=== PATIENT | female | born 2000 | race Caucasian/White ===

== ENCOUNTER 2024-05-23 18:43 | Emergency (ER) | payer OTHER ==
[~2024-05-23] VITALS: Ht 167.6 cm; Wt 63.0 kg
[2024-05-23 20:21] LABS: BASO % 0.3 % (0.0-1.0); EOS # 0.1 10^3/uL (0.0-0.5); EOS % 1.3 % (0.0-3.0); HEMATOCRIT 31.9 % (36.0-47.0); LYMPH # 2.3 10^3/uL (1.5-5.0); LYMPH % 30.6 % (24.0-44.0); MEAN CORPUSCULAR HEMOGLOBIN 23.9 pg (27.0-33.0); MEAN CORPUSCULAR HGB CONC 31.3 g/dl (32.0-36.5); MEAN CORPUSCULAR VOLUME 76.1 fl (80.0-96.0); MONO # 0.6 10^3/uL (0.0-0.8); MONO % 7.6 % (2.0-8.0); NEUTROPHILS # 4.5 10^3/uL (1.5-8.5); NEUTROPHILS % 59.9 % (36.0-66.0); PLATELET COUNT, AUTOMATED 264 10^3/uL (150-450); RED BLOOD COUNT 4.19 10^6/uL (4.00-5.40); WHITE BLOOD COUNT 7.5 10^3/uL (4.0-10.0)
[2024-05-23 20:49] LABS: LIPASE 31 U/L (12-53)
[2024-05-23 20:51] LABS: ALBUMIN 3.8 G/DL (3.2-5.2); ALKALINE PHOSPHATASE 63 U/L (46-116); ALT/SGPT 16 U/L (7.0-40); AST/SGOT 10 U/L (<34); BILIRUBIN,DIRECT < 0.1 MG/DL (<0.4); BILIRUBIN,TOTAL 0.3 MG/DL (0.3-1.2); BLOOD UREA NITROGEN 10 MG/DL (9-23); CALCIUM LEVEL 9.6 MG/DL (8.5-10.1); CARBON DIOXIDE LEVEL 23 MMOL/L (20-31); CHLORIDE LEVEL 108 MMOL/L (98-107); CREATININE FOR GFR 0.48 MG/DL (0.55-1.30); GLOMERULAR FILTRATION RATE > 60.0 (>60); GLUCOSE, FASTING 109 MG/DL (60-100); POTASSIUM SERUM 3.6 MMOL/L (3.5-5.1); SODIUM LEVEL 138 MMOL/L (136-145); TOTAL PROTEIN 7.5 G/DL (5.7-8.2)
[2024-05-23 21:04] LABS: HCG, SERUM QUANTITATIVE 42947.6 MIU/ML (<4.2)
[2024-05-24] MEDS ORDERED: METR-265 PO (02:03)
[2024-05-24] MEDS: metroNIDAZOLE (FLAGYL) 500MG TABLET PO ONE (02:05)
[2024-05-24 02:18] VITALS: BP 130/84; TEMP 98; O2SAT 99
[2024-05-24 08:43] LABS: Trichomonas vaginalis (AMP) NOT DETECTED (NEGATIVE)
[2024-05-24 09:07] LABS: GC DNA AMPLIFICATION NEGATIVE (NEGATIVE)
== END 2024-05-24 02:19 | disposition home or self-care (01) ==
LOC: M ED 18:43 → EDBD 18:43 → M ED 05-24 02:19
DX: O23.591 Infection of other part of genital tract in pregnancy, first trimester (principal); Z3A.01 Less than 8 weeks gestation of pregnancy

== ENCOUNTER → 2024-06-16 | Outpatient (CLI) | payer OTHER ==
[~2024-06-16] MED LIST: METR-265 PO
[2024-06-16 13:24] LABS: HEMATOCRIT 32.5 % (36.0-47.0); HEMOGLOBIN 10.1 g/dl (12.0-15.5); MEAN CORPUSCULAR HEMOGLOBIN 23.5 pg (27.0-33.0); MEAN CORPUSCULAR HGB CONC 31.1 g/dl (32.0-36.5); MEAN CORPUSCULAR VOLUME 75.8 fl (80.0-96.0); PLATELET COUNT, AUTOMATED 232 10^3/uL (150-450); RED BLOOD COUNT 4.29 10^6/uL (4.00-5.40); WHITE BLOOD COUNT 5.9 10^3/uL (4.0-10.0)
[2024-06-16 14:50] LABS: HIV 1&2 SCREEN NEGATIVE (NEGATIVE)
[2024-06-16 14:57] LABS: HEPATITIS C VIRUS ABY INDEX 0.02 INDEX (<0.8)
[2024-06-16 15:02] LABS: GC DNA AMPLIFICATION NEGATIVE (NEGATIVE)
== END ==
LOC: M PLALAB 11:01
PROVIDERS: ATTEND Obstetrics & Gynecology
DX: Z34.81 Encounter for supervision of other normal pregnancy, first trimester (principal)

== ENCOUNTER → 2024-08-16 | Outpatient (CLI) | payer OTHER ==
[2024-08-16 17:43] LABS: HEMATOCRIT 31.1 % (36.0-47.0); HEMOGLOBIN 10.2 g/dl (12.0-15.5); MEAN CORPUSCULAR HEMOGLOBIN 25.6 pg (27.0-33.0); MEAN CORPUSCULAR HGB CONC 32.8 g/dl (32.0-36.5); MEAN CORPUSCULAR VOLUME 78.1 fl (80.0-96.0); PLATELET COUNT, AUTOMATED 191 10^3/uL (150-450); RED BLOOD COUNT 3.98 10^6/uL (4.00-5.40); WHITE BLOOD COUNT 7.5 10^3/uL (4.0-10.0)
== END ==
LOC: M PLALAB 16:31
PROVIDERS: ATTEND Nurse Practitioner Family
DX: O99.012 Anemia complicating pregnancy, second trimester (principal)

== ENCOUNTER → 2024-08-19 | Outpatient (CLI) | payer OTHER, SELFPAY | LOC: M WHC 12:53 | PROVIDERS: ATTEND Nurse Practitioner Family | DX: Z34.82 Encounter for supervision of other normal pregnancy, second trimester (principal) ==

== ENCOUNTER → 2024-09-30 | Outpatient (CLI) | payer OTHER | LOC: M WHC 14:06 | PROVIDERS: ATTEND Nurse Practitioner Family | DX: Z34.82 Encounter for supervision of other normal pregnancy, second trimester (principal); Z3A.25 25 weeks gestation of pregnancy ==

== ENCOUNTER → 2024-10-13 | Outpatient (CLI) | payer MEDICAID, OTHER, SELFPAY ==
[2024-10-13 15:53] LABS: GLUCOSE CHALLENGE TEST 1 HOUR 124 MG/DL (LESS THAN 140)
[2024-10-13 15:59] LABS: HEMATOCRIT 33.4 % (36.0-47.0); HEMOGLOBIN 10.7 g/dl (12.0-15.5); MEAN CORPUSCULAR HEMOGLOBIN 27.4 pg (27.0-33.0); MEAN CORPUSCULAR VOLUME 85.4 fl (80.0-96.0); PLATELET COUNT, AUTOMATED 189 10^3/uL (150-450); RED BLOOD COUNT 3.91 10^6/uL (4.00-5.40); WHITE BLOOD COUNT 8.7 10^3/uL (4.0-10.0)
[2024-10-13 16:28] LABS: HIV 1&2 SCREEN NEGATIVE (NEGATIVE)
[2024-10-13 16:36] LABS: HEPATITIS C VIRUS ABY INDEX 0.15 INDEX (<0.8)
[2024-10-13 17:08] LABS: GC DNA AMPLIFICATION NEGATIVE (NEGATIVE)
== END ==
LOC: M PLALAB 11:13
PROVIDERS: ATTEND Nurse Practitioner Family
DX: Z34.80 Encounter for supervision of other normal pregnancy, unspecified trimester (principal)

== ENCOUNTER → 2024-12-14 | Outpatient (REF) | payer BC ==
[~2024-12-14] MED LIST changes: +FERR325T19 PO; +IBUP80TA PO; +PRENTAB9 PO
== END ==
LOC: M SFHCWAGY 16:57
PROVIDERS: ATTEND Advanced Practice Midwife
DX: Z34.83 Encounter for supervision of other normal pregnancy, third trimester (principal); Z36.85 Encounter for antenatal screening for Streptococcus B

== ENCOUNTER 2024-12-15 13:07 | Outpatient (CLI) | payer OTHER ==
[~2024-12-15] VITALS: Ht 170.2 cm; Wt 74.1 kg
[~2024-12-15 13:07] MED LIST changes: -FERR325T19 PO; -PRENTAB9 PO
[2024-12-15] MEDS ORDERED: PRENTAB9 PO (13:28)
[2024-12-15 13:35] VITALS: BP 113/65
[2024-12-15] MEDS: BETAMETHASONE SOLUSPAN 6MG/ML 5ML VIAL IM SCH (14:05)
[2024-12-17] MEDS ORDERED: FERR325T19 PO (07:40)
[2024-12-19] MEDS ORDERED: IBUP80TA PO (10:52)
== END 2024-12-15 14:55 | disposition home or self-care (01) ==
LOC: M LDO 13:07
PROVIDERS: ATTEND Advanced Practice Midwife
DX: O41.03X0 Oligohydramnios, third trimester, not applicable or unspecified (principal); O36.5930 Maternal care for other known or suspected poor fetal growth, third trimester, not applicable or unspecified; O99.013 Anemia complicating pregnancy, third trimester; O34.219 Maternal care for unspecified type scar from previous cesarean delivery; D50.9 Iron deficiency anemia, unspecified; Z75.8 Other problems related to medical facilities and other health care; Z3A.36 36 weeks gestation of pregnancy
CPT/HCPCS: 59025; 96372; G0463; J0702

== ENCOUNTER → 2024-12-15 | Outpatient (CLI) | payer BC, OTHER ==
[~2024-12-15] MED LIST changes: -IBUP80TA PO
== END ==
LOC: M RAD 12:40
PROVIDERS: ATTEND Advanced Practice Midwife
DX: O26.843 Uterine size-date discrepancy, third trimester (principal); Z3A.36 36 weeks gestation of pregnancy

== ENCOUNTER 2024-12-16 14:03 | Outpatient (CLI) | payer MEDICAID, OTHER ==
[~2024-12-16] VITALS: Ht 157.5 cm; Wt 74.3 kg
[~2024-12-16 14:03] MED LIST changes: +PRENTAB9 PO
[2024-12-16 14:23] VITALS: BP 113/75
[2024-12-16] MEDS ORDERED: HOME MED LIST COMPLETE! XX SCH (14:25)
[2024-12-16] MEDS: BETAMETHASONE SOLUSPAN 6MG/ML 5ML VIAL IM ONE (14:48)
[2024-12-17] MEDS ORDERED: FERR325T19 PO (07:40)
[2024-12-19] MEDS ORDERED: IBUP80TA PO (10:52)
== END 2024-12-16 14:48 | disposition home or self-care (01) ==
LOC: M LDO 14:03
PROVIDERS: ATTEND Obstetrics & Gynecology
DX: O41.03X0 Oligohydramnios, third trimester, not applicable or unspecified (principal); O36.5930 Maternal care for other known or suspected poor fetal growth, third trimester, not applicable or unspecified; O99.013 Anemia complicating pregnancy, third trimester; O34.219 Maternal care for unspecified type scar from previous cesarean delivery; D50.9 Iron deficiency anemia, unspecified; Z75.8 Other problems related to medical facilities and other health care; Z3A.36 36 weeks gestation of pregnancy
CPT/HCPCS: 59025; 96372; G0463; J0702

== ENCOUNTER → 2025-05-25 | Outpatient (REF) | payer OTHER, BC ==
[~2025-05-25] MED LIST changes: +FERR325T19 PO; +IBUP80TA PO
[2025-05-27 14:37] LABS: HPV APTIMA Not Detected (Not Detected)
== END ==
LOC: M SFHCWAGY 15:23
PROVIDERS: ATTEND Obstetrics & Gynecology
DX: Z12.4 Encounter for screening for malignant neoplasm of cervix (principal)